=== PATIENT | female | born 1955 | race American Indian/Alaskan Native ===

== ENCOUNTER 2018-04-25 05:58 | Emergency (ER) | payer OTHER, BC ==
[2018-04-25] MEDS ORDERED: TYLENOL PO ONE (06:22)
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
[2018-04-25] MEDS ORDERED: FLEXERIL PO ONE (07:46)
[2018-04-25] MEDS ORDERED: PERCOCET 5/325 PO ONE (07:46)
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
[2018-04-25 09:31] VITALS: BP 130/60
== END 2018-04-25 10:08 | disposition home or self-care (01) ==
LOC: ED 05:58
DX: M51.35 Other intervertebral disc degeneration, thoracolumbar region (principal); R51 Headache; M54.2 Cervicalgia; E11.9 Type 2 diabetes mellitus without complications; E78.5 Hyperlipidemia, unspecified; F17.200 Nicotine dependence, unspecified, uncomplicated; V89.2XXA Person injured in unspecified motor-vehicle accident, traffic, initial encounter; Y93.89 Activity, other specified; Y92.89 Other specified places as the place of occurrence of the external cause; Y99.8 Other external cause status
CPT/HCPCS: 70450; 72125; 72128; 72131; 99284